=== PATIENT | male | born 1990 | race Caucasian/White ===

== ENCOUNTER 2020-11-20 11:04 | Emergency (ER) | payer OTHER ==
[~2020-11-20] VITALS: Ht 177.8 cm; Wt 84.1 kg
--- NOTE | 2020-11-20 12:24 | REPVR ---
PROCEDURE INFORMATION: Exam: CT Head Without Contrast Exam date and time: 11/20/2020 12:00 PM Age: 30 years old Clinical indication: Injury or trauma; Other: Hit in head with 40# object; Work related; Blunt trauma (contusions or hematomas) TECHNIQUE: Imaging protocol: Computed tomography of the head without contrast. Radiation optimization: All CT scans at this facility use at least one of these dose optimization techniques: automated exposure control; mA and/or kV adjustment per patient size (includes targeted exams where dose is matched to clinical indication); or iterative reconstruction. COMPARISON: No relevant prior studies available. FINDINGS: Brain: Normal. No hemorrhage. Unremarkable white matter. No mass effect. Cerebral ventricles: No ventriculomegaly. Paranasal sinuses: Visualized sinuses are unremarkable. No fluid levels. Mastoid air cells: Visualized mastoid air cells are well aerated. Bones/joints: Unremarkable. No acute fracture. Soft tissues: Unremarkable. IMPRESSION: No acute intracranial abnormality. Electronically signed by: Terri Lo On 11/20/2020 12:24:20 PM
--- NOTE | 2020-11-20 12:26 | REPVR ---
PROCEDURE INFORMATION: Exam: CT Cervical Spine Without Contrast Exam date and time: 11/20/2020 12:00 PM Age: 30 years old Clinical indication: Injury or trauma; Other: Hit in head with 40# object; Work related; Blunt trauma TECHNIQUE: Imaging protocol: Computed tomography images of the cervical spine without contrast. Radiation optimization: All CT scans at this facility use at least one of these dose optimization techniques: automated exposure control; mA and/or kV adjustment per patient size (includes targeted exams where dose is matched to clinical indication); or iterative reconstruction. COMPARISON: No relevant prior studies available. FINDINGS: Bones/joints: No acute fracture. Normal alignment. Discs/Spinal canal/Neural foramina: No significant disc protrusion. No severe spinal canal stenosis. No significant neural foraminal narrowing. Lungs: Lung apices are normal. Soft tissues: Unremarkable. IMPRESSION: No acute findings. Electronically signed by: Terri Lo On 11/20/2020 12:25:34 PM
[2020-11-20] MEDS ORDERED: ONDA4TAB6 PO (13:42)
[2020-11-20 13:51] VITALS: BP 128/62
== END 2020-11-20 14:04 | disposition home or self-care (01) ==
LOC: M ED 11:04
DX: S06.0X0A Concussion without loss of consciousness, initial encounter (principal); S13.4XXA Sprain of ligaments of cervical spine, initial encounter; W20.8XXA Other cause of strike by thrown, projected or falling object, initial encounter; Y92.89 Other specified places as the place of occurrence of the external cause; Y93.9 Activity, unspecified; Y99.0 Civilian activity done for income or pay

== ENCOUNTER 2021-02-13 13:58 | Emergency (ER) | payer OTHER ==
[~2021-02-13] VITALS: Ht 175.3 cm; Wt 83.8 kg
[2021-02-13 13:58] VITALS: BP 122/68
[~2021-02-13 13:58] MED LIST: ONDA4TAB6 PO
== END 2021-02-13 14:06 | disposition left against medical advice (07) ==
LOC: M ED 13:58
DX: Z53.21 Procedure and treatment not carried out due to patient leaving prior to being seen by health care provider (principal)

== ENCOUNTER 2023-02-16 16:17 | Emergency (ER) | payer OTHER ==
[~2023-02-16] VITALS: Ht 175.3 cm; Wt 100.7 kg
[2023-02-16] MEDS ORDERED: MUCI30TA5 PO (16:33)
[2023-02-16] MEDS ORDERED: PSEU30TA86 PO (16:33)
[2023-02-16] MEDS ORDERED: ONDA4TAB6 PO (18:20)
[2023-02-16] MEDS ORDERED: FLON1SPR NARES (18:20)
[2023-02-16 18:31] VITALS: BP 151/78; TEMP 97.2; O2SAT 98
== END 2023-02-16 18:32 | disposition home or self-care (01) ==
LOC: M ED 16:17
DX: J06.9 Acute upper respiratory infection, unspecified (principal); Z88.0 Allergy status to penicillin; Z88.2 Allergy status to sulfonamides